=== PATIENT | female | born 1970 | race Caucasian/White ===

== ENCOUNTER 2022-07-09 15:22 | Emergency (ER) | payer BC, OTHER ==
[2022-07-09] MEDS ORDERED: Albuterol/Ipratropium 3.0-0.5 MG/3 ML Neb Soln NEB ONE (16:07)
[2022-07-09 16:58] LABS: CORONAVIRUS COVID-19 NAA NEGATIVE (NEGATIVE); RESPIRATORY SYNCYTIAL VIR NAA NEGATIVE (NEGATIVE)
== END 2022-07-09 17:43 | disposition home or self-care (01) ==
LOC: VM.ED 15:22
DX: F41.9 Anxiety disorder, unspecified (principal); J06.9 Acute upper respiratory infection, unspecified; Z20.822 Contact with and (suspected) exposure to COVID-19
CPT/HCPCS: 0241U; 71046; 94640; 99284; J7620-GY

== ENCOUNTER 2024-04-29 00:30 | Emergency (ER) | payer OTHER ==
[2024-04-29] MEDS: LORazepam 1 MG Tab PO ONE (01:02)
== END 2024-04-29 01:39 | disposition left against medical advice (07) ==
LOC: VM.ED 00:30
DX: F41.9 Anxiety disorder, unspecified (principal); J45.909 Unspecified asthma, uncomplicated; E03.9 Hypothyroidism, unspecified; Z79.890 Hormone replacement therapy
CPT/HCPCS: 99283; A9270-GY